=== PATIENT | female | born 1985 | race Caucasian/White ===

== ENCOUNTER 2020-12-09 20:47 | Emergency (ER) | payer BC ==
[~2020-12-09] VITALS: Ht 157.5 cm; Wt 72.6 kg
[2020-12-09] MEDS ORDERED: ATIVAN0.5 M1 PO (21:04)
[2020-12-09] MEDS ORDERED: SINGULAIR 10 MG10 MG PO (21:04)
[2020-12-09] MEDS ORDERED: DESYREL150 MG PO (21:04)
[2020-12-09] MEDS ORDERED: LORATIDINE 10 M10 M1 PO (21:04)
[2020-12-09] MEDS ORDERED: CYMBALTA20 MG PO (21:04)
[2020-12-09] MEDS ORDERED: HYDROCODON-ACE1 EAC7 PO ×2 (21:15→21:18)
[2020-12-09 21:30] VITALS: BP 146/98
== END 2020-12-09 21:30 | disposition home or self-care (01) ==
LOC: M.ERS 20:47
DX: M79.605 Pain in left leg (principal); M79.604 Pain in right leg; M79.642 Pain in left hand; M79.641 Pain in right hand; M79.7 Fibromyalgia; J45.909 Unspecified asthma, uncomplicated; M41.9 Scoliosis, unspecified; Z88.1 Allergy status to other antibiotic agents; Z88.8 Allergy status to other drugs, medicaments and biological substances

== ENCOUNTER 2021-04-27 21:21 | Emergency (ER) | payer BC ==
[~2021-04-27] VITALS: Ht 157.5 cm; Wt 77.1 kg
[~2021-04-27 21:21] MED LIST: ATIVAN0.5 M1 PO; CYMBALTA20 MG PO; DESYREL150 MG PO; HYDROCODON-ACE1 EAC7 PO; LORATIDINE 10 M10 M1 PO; SINGULAIR 10 MG10 MG PO
[2021-04-27] MEDS ORDERED: VENTOLIN HFA 1818 GM INH (21:44)
[2021-04-27] MEDS ORDERED: SYMBICORT160 MCG/4. INH (21:44)
[2021-04-27] MEDS ORDERED: LYRICA20 MG/1 ML PO (21:44)
[2021-04-27] MEDS ORDERED: SPIRIVA18 MCG INH (21:44)
[2021-04-27 22:35] LABS: INFLUENZA A ANTIGEN Negative (Negative); INFLUENZA B ANTIGEN Negative (Negative)
[2021-04-27] MEDS ORDERED: DOXYCYCLINE 10100 MG PO (23:43)
[2021-04-27] MEDS ORDERED: NYSTATIN100000 UNI SW&SWALLOW (23:43)
[2021-04-27] MEDS ORDERED: DIFLUCAN150 MG PO ×2 (23:43→23:44)
[2021-04-27 23:51] VITALS: BP 144/78
== END 2021-04-27 23:51 | disposition home or self-care (01) ==
LOC: M.ERS 21:21
PROVIDERS: Personal Emergency Response Attendant
DX: J02.9 Acute pharyngitis, unspecified (principal); Z20.822 Contact with and (suspected) exposure to COVID-19; B37.9 Candidiasis, unspecified; J45.909 Unspecified asthma, uncomplicated; Z79.899 Other long term (current) drug therapy; Z88.0 Allergy status to penicillin